=== PATIENT | male | born 1960 | race Caucasian/White ===

== ENCOUNTER 2023-09-25 17:31 | Emergency (ER) | payer OTHER ==
[2023-09-25 17:56] VITALS: BP 148/101; PULSE 66; RESP 16; TEMP 97.7; BMI 23.6
[2023-09-25] MEDS ORDERED: IBUPROFEN 600 MG TABLET (FP) PO ONE (18:31)
[2023-09-25] MEDS: IBUPROFEN 600 MG TABLET (FP) PO ONE (18:33)
== END 2023-09-25 19:05 | disposition home or self-care (01) ==
LOC: FER 17:31
DX: S29.011A Strain of muscle and tendon of front wall of thorax, initial encounter (principal); M54.9 Dorsalgia, unspecified; X58.XXXA Exposure to other specified factors, initial encounter
CPT/HCPCS: 36415; 84484; 99283-25